=== PATIENT | female | born 1965 | race Caucasian/White ===

== ENCOUNTER 2016-10-19 20:30 | Emergency (ER) | payer BC ==
[~2016-10-19] VITALS: Ht 167.6 cm; Wt 78.0 kg
[2016-10-19] MEDS ORDERED: PROMETHAZINE 25 MG in IV NORMAL SALINE 50ML 50 ML IV PRN (21:00)
[2016-10-19] MEDS ORDERED: SUMATRIPTAN 6 MG/0.5 ML VIAL. SQ ONE (21:30)
[2016-10-19] MEDS ORDERED: IV NORMAL SALINE 1,000ML 1,000 ML IV SCH (21:30)
[2016-10-19] MEDS ORDERED: HALOPERIDOL LACT 5 MG/ML VIAL. IVP ONE (21:30)
[2016-10-19] MEDS ORDERED: KETOROLAC 30 MG/ML VIAL. IV ONE (21:30)
[2016-10-19] MEDS ORDERED: IV NORMAL SALINE 50ML 50 ML ONE (21:35)
[2016-10-19] MEDS ORDERED: PROMETHAZINE 25 MG/ML VIAL IV ONE (21:35)
[2016-10-19] MEDS ORDERED: BUTA1CAP29 PO (22:47)
[2016-10-19] MEDS ORDERED: ONDA4TAB10 PO (22:49)
--- NOTE | 2016-10-19 22:49 | PHYS DOC ---
General Chief Complaint: HEADACHE Stated Complaint: MIGRAINE Time Seen by MD: 20:34 Source: patient Exam Limitations: no limitations Problems: History of Present Illness Initial Comments Pt is 50/F to ED c/o headache. Pt states since Thursday (4 days) she's had global headache 9/10 throbbing with nausea, photophobia. No vision changes/aura/focal neurodeficit, no unexplained wt loss/head trauma/ataxia. Not described as "worst of life" but is consistent with prior chronic headache symptoms. CT evaluation past two years with negative findings, currently waiting for health insurance to schedule appointment with Dr Jauregui. Pt taking OTC meds past 4 days, nonbloody emesis x 2 tonight due to pain, tired of waiting it out so decided to come to ED. Timing/Duration: constant (4 days) Severity: severe Modifying Factors: worse with movement, improves with rest Associated Symptoms: headaches, malaise, nausea/vomiting, other Allergies: Coded Allergies: Penicillins (Verified Allergy, Intermediate, 10/19/16) Past Medical History Medical History: other (gastroparesis, chronic headaches/migraines) Surgical History: appendectomy, cholecystectomy (hysterectomy) Social History Smoker: non-smoker Alcohol: none Drugs: none Review of Systems Constitutional: denies chills, denies diaphoresis, denies fever EENTM: see HPI Respiratory: denies cough, denies shortness of breath Cardiovascular: denies chest pain, denies palpitations, denies syncope Gastrointestinal: denies abdominal pain, denies diarrhea, nausea vomiting ( vomit x 2 tonight) Genitourinary: denies dysuria, denies frequency, denies hematuria Musculoskeletal: denies back pain, denies joint swelling, denies neck pain Psychiatric/Neurological: see HPI Physical Exam General Appearance: mild distress, obese Eyes: bilateral eye EOMI, bilateral eye PERRL, bilateral eye normal inspection Ear, Nose, Throat: hearing grossly normal, normal ENT inspection, normal pharynx Neck: non-tender, supple Respiratory: normal breath sounds, no respiratory distress Cardiovascular: normal peripheral pulses, regular rate, rhythm Gastrointestinal: normal bowel sounds, non tender, soft, no organomegaly Back: no CVA tenderness, no vertebral tenderness Extremities: non-tender, normal inspection 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 Pt expressed agreement/understanding with treatment plan. Departure Time of Disposition: 22:47 Disposition: 01 HOME, SELF-CARE Diagnosis: Migraine Headache Condition: IMPROVED Patient Instructions: Migraine Headache, [id number] Additional Instructions: Rest, no strenuous activity. Aggressive hydration with gatorade, water. OTC ibuprofen for baseline discomfort. Rx: fioricet #10, zofran odt Take meds with food. Follow up with Dr Jauregui next available appointment for recheck. Return to ED with new or changing symptoms. ISH RENEE DO Oct 19, 2016 22:49
[2016-10-19 22:54] VITALS: BP 141/71
[2016-10-19] MEDS ORDERED: ONDANSETRON 4MG ODT 4TABLET STARTPACK. PO ONE (23:30)
== END 2016-10-19 23:00 | disposition home or self-care (01) ==
LOC: ER 20:30
DX: G43.909 Migraine, unspecified, not intractable, without status migrainosus (principal); R11.2 Nausea with vomiting, unspecified; Z88.0 Allergy status to penicillin
CPT/HCPCS: 96365; 96372; 96375; 99284; J1630; J1885; J2550; J3030; Q0162; J7030

== ENCOUNTER 2017-10-24 15:11 | Emergency (ER) | payer BC, OTHER ==
[~2017-10-24] VITALS: Ht 167.6 cm; Wt 78.0 kg
[2017-10-24 15:11] VITALS: BP 140/97
[~2017-10-24 15:11] MED LIST: BUTA1CAP29 PO; ONDA4TAB10 PO
[2017-10-24] MEDS ORDERED: FLUORESCEIN 1MG EYE STRIP. ONE (15:29)
[2017-10-24] MEDS ORDERED: TETRACAINE 0.5% OPHTH SOLUTION 4ML BOTTLE. OS ONE (15:45)
--- NOTE | 2017-10-24 17:40 | ED.ADGEN ---
Past History Past Medical History: Migraines Past Surgical History: Appendectomy, Cholecystectomy, Hysterectomy Alcohol Use: None Drug Use: None Adult General Chief Complaint Chief Complaint foreign body sensation left eye HPI HPI Patient is a 52-year-old female presents with foreign body sensation to left eye. Patient states she also has known object flew into her eye from the ceiling fan. Patient reports dull foreign body sensation left lateral lower eyelid region. Denies change in vision, headache, nausea or headache. It is rated as mild [] Review of Systems Review of Systems Constitutional: Denies fever or chills [] Eyes: Denies change in visual acuity, redness, or eye pain [] HENT: Denies nasal congestion or sore throat [] Respiratory: Denies cough or shortness of breath [] Cardiovascular: No additional information not addressed in HPI [] GI: Denies abdominal pain, nausea, vomiting, bloody stools or diarrhea [] : Denies dysuria or hematuria [] Musculoskeletal: Denies back pain or joint pain [] Integument: Denies rash or skin lesions [] Neurologic: Denies headache, focal weakness or sensory changes [] Endocrine: Denies polyuria or polydipsia [] All other systems were reviewed and found to be within normal limits, except as documented in this note. Current Medications Current Medications Current Medications Medications (Trade) Dose Ordered Sig/[facility] Start Time Stop Time Status Last Admin Dose Admin Fluorescein Sodium (Ful-Roz 1mg) 1 strip STK-MED ONCE 10/24/17 15:29 10/24/17 15:30 DC Tetracaine HCl (Tetracaine) 2 drop 1X ONCE 10/24/17 15:45 10/24/17 15:46 DC 10/24/17 15:31 2 DROP Allergies Allergies Allergies Coded Allergies Type Severity Reaction Last Updated Verified Penicillins Allergy Intermediate 10/19/16 Yes Physical Exam Physical Exam Constitutional: Well developed, well nourished, no acute distress, non-toxic appearance. [] HENT: Normocephalic, atraumatic, bilateral external ears normal, oropharynx moist, no oral exudates, nose normal. [] Eyes: PERRLA, EOMI, conjunctiva normal, no discharge. [] Neck: Normal range of motion, no tenderness, supple, no stridor. [] Cardiovascular:Heart rate regular rhythm, no murmur [] Lungs & Thorax: Bilateral breath sounds clear to auscultation [] Abdomen: Bowel sounds normal, soft, no tenderness, no masses, no pulsatile masses. [] Skin: Warm, dry, no erythema, no rash. [] Back: No tenderness, no CVA tenderness. [] Extremities: No tenderness, no cyanosis, no clubbing, ROM intact, no edema. [] Neurologic: Alert and oriented X 3, normal motor function, normal sensory function, no focal deficits noted. [] Psychologic: Affect normal, judgement normal, mood normal. [] Current Patient Data Vital Signs Vital Signs Date Time Temp Pulse Resp B/P (MAP) Pulse Ox O2 Delivery O2 Flow Rate FiO2 10/24/17 15:11 98.0 94 20 98 Room Air EKG EKG [] Radiology/Procedures Radiology/Procedures [] Course & Med Decision Making Course & Med Decision Making Pertinent Labs and Imaging studies reviewed. (See chart for details) [] Final Impression Final Impression [] Problems: Dragon Disclaimer Dragon Disclaimer This electronic medical record was generated, in whole or in part, using a voice recognition dictation system. ELIZA GONCALVES DO October 24, 2017 17:40
== END 2017-10-24 16:30 | disposition home or self-care (01) ==
LOC: ER 15:11
DX: H57.8 Other specified disorders of eye and adnexa (principal); G43.909 Migraine, unspecified, not intractable, without status migrainosus; Z88.0 Allergy status to penicillin
CPT/HCPCS: 99283

== ENCOUNTER 2018-07-04 15:04 | Emergency (ER) | payer OTHER ==
[~2018-07-04] VITALS: Ht 167.6 cm; Wt 78.0 kg
--- NOTE | 2018-07-04 15:45 | PHYS DOC ---
Past History Past Medical History: Migraines Past Surgical History: Appendectomy, Cholecystectomy, Hysterectomy Smoking: Non-smoker Alcohol Use: None Drug Use: None Adult General Chief Complaint Chief Complaint: CHEST PAIN HPI HPI 52-year-old female resents with one-day history of sinus pressure with headache and associated chest discomfort. Patient does report associated nausea vomiting and diarrhea. Denies fever or chills. Denies trauma. Denies neck pain. Review of Systems Review of Systems Constitutional: Denies fever or chills [] Eyes: Denies change in visual acuity, redness, or eye pain [] HENT: Denies nasal congestion or sore throat [] Respiratory: Denies cough or shortness of breath [] Cardiovascular: Reports chest pain; denies palpitations GI: Denies abdominal pain; reports nausea and vomiting : Denies dysuria or hematuria [] Musculoskeletal: Denies back pain or joint pain [] Integument: Denies rash or skin lesions [] Neurologic: Denies headache, focal weakness or sensory changes [] Complete systems were reviewed and found to be within normal limits, except as documented in this note. Current Medications Current Medications Current Medications Medications (Trade) Dose Ordered Sig/Álvaro Start Time Stop Time Status Last Admin Dose Admin Dexamethasone Sodium Phosphate (Decadron) 10 mg 1X ONCE 07/04/18 16:00 07/04/18 16:01 Diphenhydramine HCl (Benadryl) 25 mg 1X ONCE 07/04/18 16:00 07/04/18 16:01 Famotidine (Pepcid Vial) 20 mg 1X ONCE 07/04/18 16:00 07/04/18 16:01 Ketorolac Tromethamine (Toradol 15mg Vial) 15 mg 1X ONCE 07/04/18 16:00 07/04/18 16:01 Metoclopramide HCl (Reglan Vial) 10 mg 1X ONCE 07/04/18 16:00 07/04/18 16:01 Sodium Chloride 1,000 ml @ 1,000 mls/hr 1X ONCE 07/04/18 15:30 07/04/18 16:29 Allergies Allergies Allergies Coded Allergies Type Severity Reaction Last Updated Verified Penicillins Allergy Intermediate 10/19/16 Yes Physical Exam Physical Exam Constitutional: Well developed, well nourished, no acute distress, non-toxic appearance. [] HENT: Normocephalic, atraumatic, oropharynx moist, no oral exudates, nose normal , bilateral maxillary sinus tenderness noted on palpations Eyes: PERRL, EOMI, conjunctiva normal, no discharge. [] Neck: Normal range of motion, no tenderness, supple, no meningeal signs Cardiovascular: Heart rate regular rhythm, no murmur [] Lungs & Thorax: Bilateral breath sounds clear to auscultation [] Abdomen: Soft, no tenderness Skin: Warm, dry, no erythema, no rash. [] Back: No tenderness, no CVA tenderness. [] Extremities: No tenderness, ROM intact, no edema. [] Neurologic: Alert and oriented X 3, normal motor function, normal sensory function, no focal deficits noted. [] Psychologic: Affect normal, judgement normal, mood normal. [] EKG EKG @1510 NSR at 75bpm, NO ST elevation, Q wave noted in III Radiology/Procedures Radiology/Procedures PROCEDURE: CT HEAD AND MAXILLOFACIAL [facility] Compliance Statement: One or more of the following individualized dose reduction techniques were utilized for this examination: 1. Automated exposure control 2. Adjustment of the mA and/or kV according to patient size 3. Use of iterative reconstruction technique CT HEAD AND MAXILLOFACIAL WITHOUT CONTRAST History: Facial pain, sinus pressure on left affecting eye, headache today Comparison: None. Procedure: Axial images are obtained of the head from the skull base through the vertex without IV contrast. Helical CT imaging of the facial bones is performed without IV contrast. Findings: The ventricles and sulci are normal for the patient's age. No mass-effect, midline shift, hemorrhage or obvious acute infarction is identified. Basilar cisterns are patent. Bone windows demonstrate no significant calvarial abnormality. No acute facial bone fracture. Small mucous retention cyst or polyp inferior right maxillary sinus. Minimal mucosal thickening. Other paranasal sinuses are clear. No air-fluid level. Mastoid air cells are well aerated. The ostiomeatal complexes are very narrow but appear to be patent. Bony nasal septum is mostly midline. The globes and orbits are intact. There is a left maxilla molar dental cavity. Cannot evaluate surrounding soft tissues due to beam hardening artifact from nearby dental amalgam. IMPRESSION: 1. No acute intracranial abnormality. 2. Paranasal sinuses are essentially clear. 3. There is left maxilla molar tooth dental cavity. Electronically signed by: Kirt Lindsay MD (07/04/2018 4:09 PM) [facility] Course & Med Decision Making Course & Med Decision Making Pertinent Labs and Imaging studies reviewed. (See chart for details) Patient presents with report of sinus pressure and headache with associated chest discomfort and nausea vomiting diarrhea. Denies known sick contacts. Denies neck pain. Patient is afebrile. Patient otherwise neurologically intact. Patient does have some maxillary sinus pressure on palpation. CT head/ maxillofacial without acute process. Symptomatically treatment provided with interval improvement of symptoms. Patient stable for discharge with outpatient follow-up with PCP. Discussed findings and plan with patient, who acknowledges understanding and agreement. Dragon Disclaimer Dragon Disclaimer This electronic medical record was generated, in whole or in part, using a voice recognition dictation system. Departure Departure: Impression: Primary Impression: Headache Additional Impression: Atypical chest pain Disposition: HOME, SELF-CARE Condition: IMPROVED Referrals: MO FORD MD (PCP) Patient Instructions: Migraine Headache, [id number] Scripts Butalb/Acetaminophen/Caffeine ([id number] 50-325-40) 1 Each Tablet 1 EACH PO Q6HRS PRN for HEADACHE, #14 TAB Prov: JORJE GOETZ DO 07/04/18 Problem Qualifiers Primary Impression: Headache Headache type: unspecified Headache chronicity pattern: acute headache Intractability: not intractable Qualified Codes: R51 - Headache JORJE GOETZ DO Jul 04, 2018 15:45
--- NOTE | 2018-07-04 16:11 | EKG ---
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
--- NOTE | 2018-07-04 16:13 | RAD ---
[facility] Compliance Statement: One or more of the following individualized dose reduction techniques were utilized for this examination: 1. Automated exposure control 2. Adjustment of the mA and/or kV according to patient size 3. Use of iterative reconstruction technique CT HEAD AND MAXILLOFACIAL WITHOUT CONTRAST History: Facial pain, sinus pressure on left affecting eye, headache today Comparison: None. Procedure: Axial images are obtained of the head from the skull base through the vertex without IV contrast. Helical CT imaging of the facial bones is performed without IV contrast. Findings: The ventricles and sulci are normal for the patient's age. No mass-effect, midline shift, hemorrhage or obvious acute infarction is identified. Basilar cisterns are patent. Bone windows demonstrate no significant calvarial abnormality. No acute facial bone fracture. Small mucous retention cyst or polyp inferior right maxillary sinus. Minimal mucosal thickening. Other paranasal sinuses are clear. No air-fluid level. Mastoid air cells are well aerated. The ostiomeatal complexes are very narrow but appear to be patent. Bony nasal septum is mostly midline. The globes and orbits are intact. There is a left maxilla molar dental cavity. Cannot evaluate surrounding soft tissues due to beam hardening artifact from nearby dental amalgam. IMPRESSION: 1. No acute intracranial abnormality. 2. Paranasal sinuses are essentially clear. 3. There is left maxilla molar tooth dental cavity. Electronically signed by: Kirt Lindsay MD (07/04/2018 4:09 PM) [facility]
[2018-07-04] MEDS: IV NORMAL SALINE 1,000ML 1,000 ML IV ONE (16:49)
[2018-07-04] MEDS: diphenhydrAMINE 50 MG/ML VIAL IVP ONE (16:49)
[2018-07-04] MEDS: DEXAMETHASONE SOD PHOS 10 MG/ML VIAL IV ONE (16:50)
[2018-07-04] MEDS: FAMOTIDINE 20 MG/2 ML VIAL IVP ONE (16:50)
[2018-07-04] MEDS: KETOROLAC 15 MG/ML VIAL. IV ONE (16:50)
[2018-07-04] MEDS: METOCLOPRAMIDE HCL 10 MG/2 ML VIAL. IV ONE (16:50)
[2018-07-04 17:03] LABS: BASO # 0.1 x10^3/uL (0.0-0.2); BASO % 1 % (0-3); EOS % 0 % (0-3); HEMATOCRIT 43.3 % (36.0-47.0); LYMPH # 0.9 x10^3/uL (1.0-4.8); LYMPH % 10 % (24-48); MEAN CORPUSCULAR HEMOGLOBIN 30 pg (25-35); MEAN CORPUSCULAR HGB CONC 35 g/dL (31-37); MEAN CORPUSCULAR VOLUME 87 fL (79-100); MONO # 0.3 x10^3/uL (0.0-1.1); MONO % 3 % (0-9); NEUT % 86 % (31-73); PLATELET COUNT 298 x10^3/uL (140-400); RED BLOOD COUNT 4.99 x10^6/uL (3.50-5.40); RED CELL DISTRIBUTION WIDTH 13.3 % (11.5-14.5); WHITE BLOOD COUNT 9.3 x10^3/uL (4.0-11.0)
[2018-07-04 17:25] VITALS: BP 153/79
[2018-07-04 17:49] LABS: ALBUMIN 3.7 g/dL (3.4-5.0); ALBUMIN/GLOBULIN RATIO 0.9 (1.0-1.7); CALCIUM 8.7 mg/dL (8.5-10.1); CREATININE 0.7 mg/dL (0.6-1.0); GFR 88.2; MAGNESIUM 1.9 mg/dL (1.8-2.4); POTASSIUM 4.1 mmol/L (3.5-5.1); TOTAL BILIRUBIN 0.3 mg/dL (0.2-1.0); TOTAL PROTEIN 7.6 g/dL (6.4-8.2)
[2018-07-04] MEDS ORDERED: BUTA1TAB23 PO (18:05)
== END 2018-07-04 17:52 | disposition home or self-care (01) ==
LOC: ER 15:04
DX: R07.89 Other chest pain (principal); R51 Headache; G43.909 Migraine, unspecified, not intractable, without status migrainosus; Z88.0 Allergy status to penicillin
CPT/HCPCS: 36415; 70450; 70486; 80053; 82553; 83735; 84484; 85025; 93005; 96374; 96375; 99284; J1100; J1200; J1885; J2765; J3490; J7030

== ENCOUNTER 2018-08-13 19:31 | Emergency (ER) | payer SELFPAY ==
[~2018-08-13] VITALS: Ht 167.6 cm; Wt 81.6 kg
[~2018-08-13 19:31] MED LIST changes: +BUTA1TAB23 PO
[2018-08-13 20:04] VITALS: BP 152/67
--- NOTE | 2018-08-13 20:30 | ED.ADGEN ---
Past History Past Medical History: Kidney Stones, Migraines, UTI Past Surgical History: Appendectomy, Cholecystectomy, Hysterectomy Smoking: Non-smoker Alcohol Use: None Drug Use: None Adult General Chief Complaint Chief Complaint ".. This is like my 4th renal stone.. they say I will keep getting them... not much blood in my urine.. I just need something for pain and nausea.. I don't want any CT or labs.. I had these so .. I know what is going on..." [facility] HPI Patient is a 52 year old FEMALE who presents with above hx and complaints renal colic on the left. Patient has history of previous renal stones. She reports Stone has seen the passed down on the left just above bladder. Patient denies any dysuria. Patient states that hematuria is cleared. Patient denies any history immunosuppression. Patient denies any history of trauma. Patient denies any travel or specific ill contacts. Patient normally healthy with the exception of the kidney stones. Patient insistent that she does not want any labs or CT at this time and will follow-up with her urologist and primary care. Patient apparently works at [employer]. Patient denies any fever or chills. Patient normally follows with Dr. Jauregui Review of Systems Review of Systems Constitutional: Denies fever or chills [] Eyes: Denies change in visual acuity, redness, or eye pain [] HENT: Denies nasal congestion or sore throat [] Respiratory: Denies cough or shortness of breath [] Cardiovascular: No additional information not addressed in HPI [] GI: Plaints of left flank abdominal pain, nausea, vomiting,. Complaints of renal colic. Denies bloody stools or diarrhea [] : Denies dysuria or hematuria [] Musculoskeletal: Plaints left flank back pain. Integument: Denies rash or skin lesions [] Neurologic: Denies headache, focal weakness or sensory changes [] Endocrine: Denies polyuria or polydipsia [] All other systems were reviewed and found to be within normal limits, except as documented in this note. Family History Family History Noncontributory Current Medications Current Medications Current Medications Medications (Trade) Dose Ordered Sig/Álvaro Start Time Stop Time Status Last Admin Dose Admin Ketorolac Tromethamine (Toradol Im) 60 mg 1X ONCE 08/13/18 21:45 08/13/18 21:46 DC 08/13/18 21:35 60 MG Morphine Sulfate (Morphine 10mg Syringe) 10 mg 1X ONCE 08/13/18 21:45 08/13/18 21:46 DC 08/13/18 21:42 10 MG Ondansetron HCl (Zofran Odt) 8 mg 1X ONCE 08/13/18 21:45 08/13/18 21:46 DC 08/13/18 21:41 8 MG Allergies Allergies Allergies Coded Allergies Type Severity Reaction Last Updated Verified Penicillins Allergy Intermediate 10/19/16 Yes Physical Exam Physical Exam Constitutional: in moderately acute distress, non-toxic appearance. [] HENT: Normocephalic, atraumatic, bilateral external ears normal, oropharynx moist, no oral exudates, nose normal. [] Eyes: PERRLA, EOMI, conjunctiva normal, no discharge. [] Neck: Normal range of motion, no tenderness, supple, no stridor. [] Cardiovascular:Heart rate regular rhythm, no murmur [] Lungs & Thorax: Bilateral breath sounds equal apex on auscultation [] Abdomen: Bowel sounds decreased, soft, no tenderness, no masses, no pulsatile masses. Flank pain. Old surgery scar. Obese. No true rebound. Skin: Warm, dry, no erythema, no rash. [] Back: No tenderness, no CVA tenderness. [] Extremities: No tenderness, no cyanosis, no clubbing, ROM intact, no edema. [] No psoas Neurologic: Alert and oriented X 3, normal motor function, normal sensory function, no focal deficits noted. [] Psychologic: Affect anxious, judgement normal, mood normal. [] Current Patient Data Vital Signs Vital Signs Date Time Temp Pulse Resp B/P (MAP) Pulse Ox O2 Delivery O2 Flow Rate FiO2 08/13/18 21:42 18 08/13/18 20:04 98.1 71 97 Room Air Lab Results Laboratory Tests Test 08/13/18 19:40 Urine Collection Type Unknown Urine Color Yellow Urine Clarity Clear Urine pH 7.0 Urine Specific [place] 1.020 Urine Protein Neg (NEG-TRACE) Urine Glucose (UA) Neg mg/dL (NEG) Urine Ketones (Stick) Neg mg/dL (NEG) Urine Blood Neg (NEG) Urine Nitrite Neg (NEG) Urine Bilirubin Neg (NEG) Urine Urobilinogen Dipstick 0.2 mg/dL (0.2 mg/dL) Urine Leukocyte Esterase Neg (NEG) Urine RBC 0 /HPF (0-2) Urine WBC Occ /HPF (0-4) Urine Squamous Epithelial Cells Occ /LPF Urine Bacteria 0 /HPF (0-FEW) EKG EKG [] Radiology/Procedures Radiology/Procedures Patient declined any CT evaluation[] Course & Med Decision Making Course & Med Decision Making Pertinent Labs and Imaging studies reviewed. (See chart for details). Patient push fluids. Stay on a clear fluid diet. May take Vicoprofen up to 4 times a day for pain. May take Zofran 8 mg up 4 times a day for nausea and vomiting. Must follow-up primary care. Follow-up with urology. Return if any concerns. [] Final Impression Final Impression 1. Dysuria 2. Renal colic - Lt. [] 3. Hx Kidney stones Dragon Disclaimer Dragon Disclaimer This electronic medical record was generated, in whole or in part, using a voice recognition dictation system. Dragon Disclaimer This chart was dictated in whole or in part using Voice Recognition software in a busy, high-work load, and often noisy Emergency Department environment. It may contain unintended and wholly unrecognized errors or omissions. Discharge Summary Visit Information Final Diagnosis Problems Medical Problems: (1) Kidney calculi Status: Acute (2) Renal colic Status: Acute Brief Hospital Course Allergies Allergies Coded Allergies Type Severity Reaction Last Updated Verified Penicillins Allergy Intermediate 10/19/16 Yes Vital Signs Vital Signs Date Time Temp Pulse Resp B/P (MAP) Pulse Ox O2 Delivery O2 Flow Rate FiO2 08/13/18 21:42 18 08/13/18 20:04 98.1 71 97 Room Air Lab Results Laboratory Tests Test 08/13/18 19:40 Urine Collection Type Unknown Urine Color Yellow Urine Clarity Clear Urine pH 7.0 Urine Specific [place] 1.020 Urine Protein Neg (NEG-TRACE) Urine Glucose (UA) Neg mg/dL (NEG) Urine Ketones (Stick) Neg mg/dL (NEG) Urine Blood Neg (NEG) Urine Nitrite Neg (NEG) Urine Bilirubin Neg (NEG) Urine Urobilinogen Dipstick 0.2 mg/dL (0.2 mg/dL) Urine Leukocyte Esterase Neg (NEG) Urine RBC 0 /HPF (0-2) Urine WBC Occ /HPF (0-4) Urine Squamous Epithelial Cells Occ /LPF Urine Bacteria 0 /HPF (0-FEW) Brief Hospital Course Ms. Lovett is a 52 old female who presented with complaints of Lt renal colic. Declined labs or CT. Request pain and nausea med. Will follow with her urology and Dr. Jauregui. Discharge Information Condition at Discharge: Improved, Stable Disposition/Orders: D/C to Home Dischare Medications Current Medications Morphine Sulfate (Morphine 10mg Syringe) 10 mg 1X ONCE SQ Last administered on 08/13/18at 21:42; Admin Dose 10 MG; Start 08/13/18 at 21:45; Stop 08/13/18 at 21:46; Status DC Ketorolac Tromethamine (Toradol Im) 60 mg 1X ONCE IM Last administered on 08/13at 21:35; Admin Dose 60 MG; Start 08/13/18 at 21:45; Stop 08/13/18 at 21:46; Status DC Ondansetron HCl (Zofran Odt) 8 mg 1X ONCE PO Last administered on 08/13/18at 21 :41; Admin Dose 8 MG; Start 08/13/18 at 21:45; Stop 08/13/18 at 21:46; Status DC Active Scripts Active Zofran (Ondansetron Hcl) 8 Mg Tablet 8 Mg PO QIDPRN PRN Hydrocodone-Ibuprofen 7.5-200 (Hydrocodone/Ibuprofen) 1 Each Tablet 1 Tab PO PRN Q6HRS PRN Nrjwmz-Axmctsrk-Juge 50-325-40 (Butalb/Acetaminophen/Caffeine) 1 Each Tablet 1 Each PO Q6HRS PRN Zofran Odt (Ondansetron) 4 Mg Tab.rapdis 4 Mg PO Q6HRS Fioricet 50-300-40 Mg Capsule (Butalb/Acetaminophen/Caffeine) 1 Each Capsule 1 Each PO Q4-6HRS PRN AISLINN CONNOLLY MD Aug 13, 2018 20:30
[2018-08-13 21:02] LABS: BILIRUBIN,URINE NEG (NEG); CLARITY,URINE CLEAR; COLOR,URINE YELLOW; GLUCOSE,URINE NEG (NEG)
[2018-08-13 21:03] LABS: BACTERIA,URINE 0 /HPF (0-FEW); NITRITE,URINE NEG (NEG); RBC,URINE 0 /HPF (0-2); SQUAMOUS EPITHELIAL CELL,UR OCC /LPF; UROBILINOGEN,URINE 0.2 mg/dL (0.2 mg/dL); WBC,URINE OCC /HPF (0-4)
[2018-08-13] MEDS ORDERED: ONDA8TAB9 PO (21:21)
[2018-08-13] MEDS ORDERED: HYDR-1179 PO (21:21)
[2018-08-13] MEDS ORDERED: ONDANSETRON ODT 4 MG TAB.RAPDIS PO ONE (21:45)
[2018-08-13] MEDS ORDERED: KETOROLAC 60 MG/2 ML VIAL. IM ONE (21:45)
[2018-08-13] MEDS ORDERED: MORPHINE SULFATE 10 MG/ML SYRINGE. SQ ONE (21:45)
== END 2018-08-13 21:49 | disposition home or self-care (01) ==
LOC: ER 19:31
DX: N23 Unspecified renal colic (principal); R30.0 Dysuria; G43.909 Migraine, unspecified, not intractable, without status migrainosus; Z87.442 Personal history of urinary calculi; Z87.440 Personal history of urinary (tract) infections; Z90.49 Acquired absence of other specified parts of digestive tract; Z90.89 Acquired absence of other organs; Z90.710 Acquired absence of both cervix and uterus; Z88.0 Allergy status to penicillin
CPT/HCPCS: 81001; 96372; 99283; J1885; J2270; Q0162

== ENCOUNTER 2018-10-12 16:31 | Emergency (ER) | payer SELFPAY ==
[~2018-10-12] VITALS: Ht 167.6 cm; Wt 82.6 kg
[~2018-10-12 16:31] MED LIST changes: +HYDR-1179 PO; +ONDA8TAB9 PO
--- NOTE | 2018-10-12 16:48 | PHYS DOC ---
Past History Past Medical History: Kidney Stones, Migraines, UTI Past Surgical History: Appendectomy, Cholecystectomy, Hysterectomy Smoking: Non-smoker Alcohol Use: None Drug Use: None Adult General Chief Complaint Chief Complaint: COUGH HPI HPI 52-year-old female presents with cough, congestion for last 3 days. The patient is also developed laryngitis today. She was sent home from work yesterday and stayed home today. She had a strep test done yesterday that was negative. She came in today because she is not feeling any better. She denies fever or chills at home. Her cough is minimally productive. She is able to sleep at night. Review of Systems Review of Systems Constitutional: Denies fever or chills [] Eyes: Denies change in visual acuity, redness, or eye pain [] HENT: Denies nasal congestion or sore throat [] Respiratory: Cough without shortness of breath [] Cardiovascular: No additional information not addressed in HPI [] GI: Denies abdominal pain, nausea, vomiting, bloody stools or diarrhea [] : Denies dysuria or hematuria [] Musculoskeletal: Denies back pain or joint pain [] Integument: Denies rash or skin lesions [] Neurologic: Denies headache, focal weakness or sensory changes [] Endocrine: Denies polyuria or polydipsia [] All other systems were reviewed and found to be within normal limits, except as documented in this note. Allergies Allergies Allergies Coded Allergies Type Severity Reaction Last Updated Verified Penicillins Allergy Intermediate 10/19/16 Yes Physical Exam Physical Exam Constitutional: Well developed, well nourished, no acute distress, non-toxic appearance. Decreased voice strength[] HENT: Normocephalic, atraumatic, bilateral external ears normal, oropharynx mildly erythematous without exudates, nose normal. [] Eyes: PERRLA, EOMI, conjunctiva normal, no discharge. [] Neck: Normal range of motion, no tenderness, supple, no stridor. [] Cardiovascular:Heart rate regular rhythm, no murmur [] Lungs & Thorax: Bilateral breath sounds clear to auscultation [] Abdomen: Bowel sounds normal, soft, no tenderness, no masses, no pulsatile masses. [] Skin: Warm, dry, no erythema, no rash. [] Back: No tenderness, no CVA tenderness. [] Extremities: No tenderness, no cyanosis, no clubbing, ROM intact, no edema. [] Neurologic: Alert and oriented X 3, normal motor function, normal sensory function, no focal deficits noted. [] Psychologic: Affect normal, judgement normal, mood normal. [] EKG EKG [] Radiology/Procedures Radiology/Procedures [] Impressions: CHEST PA LATERAL History: COUGH, LARYNGITIS Comparison: None. Findings: The cardiomediastinal silhouette is normal. Pulmonary vasculature is normal. The lungs are clear. No pleural effusion or pneumothorax is seen. There is no acute bone abnormality. IMPRESSION: No acute cardiopulmonary process. Electronically signed by: Kirt Greenfield MD (10/12/2018 5:02 PM) [id number] DICTATED AND SIGNED BY: KIRT GREENFIELD MD DATE: 10/12/181701 CC: ELIZA GUTHRIE DO; MO FORD MD ~ Course & Med Decision Making Course & Med Decision Making Pertinent Labs and Imaging studies reviewed. (See chart for details) Patient's chest x-ray is unremarkable. Her physical exam and history are consistent with viral URI with cough. I have advised supportive care. She is stable for discharge at this time. [] Dragon Disclaimer Dragon Disclaimer This electronic medical record was generated, in whole or in part, using a voice recognition dictation system. Departure Departure: Impression: Primary Impression: Viral URI with cough Disposition: 01 HOME, SELF-CARE Condition: STABLE Referrals: MO FORD MD (PCP) Patient Instructions: Upper Respiratory Infection, Adult, [id number] ELIZA GUTHRIE DO Oct 12, 2018 16:48
--- NOTE | 2018-10-12 17:05 | RAD ---
CHEST PA LATERAL History: COUGH, LARYNGITIS Comparison: None. Findings: The cardiomediastinal silhouette is normal. Pulmonary vasculature is normal. The lungs are clear. No pleural effusion or pneumothorax is seen. There is no acute bone abnormality. IMPRESSION: No acute cardiopulmonary process. Electronically signed by: Kirt Lindsay MD (10/12/2018 5:02 PM) [id number]
[2018-10-12 17:28] VITALS: BP 119/76
== END 2018-10-12 17:29 | disposition home or self-care (01) ==
LOC: ER 16:31
DX: J06.9 Acute upper respiratory infection, unspecified (principal); B97.89 Other viral agents as the cause of diseases classified elsewhere; G43.909 Migraine, unspecified, not intractable, without status migrainosus; Z87.442 Personal history of urinary calculi; Z87.440 Personal history of urinary (tract) infections; Z88.0 Allergy status to penicillin
CPT/HCPCS: 71046; 99284

== ENCOUNTER 2018-11-08 22:30 | Emergency (ER) | payer SELFPAY ==
[~2018-11-08] VITALS: Ht 167.6 cm; Wt 82.1 kg
[2018-11-08 22:30] VITALS: BP 152/68
--- NOTE | 2018-11-08 22:51 | PHYS DOC ---
Past History Past Medical History: Kidney Stones, Migraines, UTI Past Surgical History: Appendectomy, Cholecystectomy, Hysterectomy Smoking: Non-smoker Alcohol Use: None Drug Use: None Adult General Chief Complaint Chief Complaint: MULTIPLE COMPLAINTS HPI HPI Patient is a 53-year-old female who presents with complaint of headache and nausea as well as elevated blood pressure and diarrhea. Patient states that she had headache earlier this evening and took a Fioricet. She states the headache is pretty much gone at this point but states that she still has nausea despite taking Zofran and Phenergan. Patient also indicates that she noted that her blood pressure was fairly elevated at home with systolic of 187. She also states that she started having diarrhea that started earlier this evening.[] Review of Systems Review of Systems Constitutional: Denies fever or chills [] Respiratory: Denies cough or shortness of breath [] Cardiovascular: No additional information not addressed in HPI [] GI: Complains of nausea and diarrhea [] Neurologic: Complains of headache without focal weakness or sensory changes [] Current Medications Current Medications Current Medications Medications (Trade) Dose Ordered Sig/Álvaro Start Time Stop Time Status Last Admin Dose Admin Diphenhydramine HCl (Benadryl) 25 mg 1X ONCE 11/08/18 22:45 11/08/18 22:46 UNV Diphenoxylate HCl/ Atropine (Lomotil) 2 tab 1X ONCE 11/08/18 22:45 11/08/18 22:46 UNV Metoclopramide HCl (Reglan Vial) 10 mg 1X ONCE 11/08/18 22:45 11/08/18 22:46 UNV Allergies Allergies Allergies Coded Allergies Type Severity Reaction Last Updated Verified Penicillins Allergy Intermediate 10/19/16 Yes Physical Exam Physical Exam Constitutional: Well developed, well nourished, no acute distress, non-toxic appearance. [] Cardiovascular:Heart rate regular rhythm, no murmur [] Lungs & Thorax: Bilateral breath sounds clear to auscultation [] Abdomen: Bowel sounds normal, soft. [] Skin: Warm, dry, no erythema, no rash. [] Neurologic: Alert and oriented X 3, no focal deficits noted. [] Current Patient Data Vital Signs Vital Signs Date Time Temp Pulse Resp B/P (MAP) Pulse Ox O2 Delivery O2 Flow Rate FiO2 11/08/18 22:30 98.1 87 18 98 Room Air EKG EKG [] Radiology/Procedures Radiology/Procedures [] Course & Med Decision Making Course & Med Decision Making Pertinent Labs and Imaging studies reviewed. (See chart for details) [] Dragon Disclaimer Dragon Disclaimer This electronic medical record was generated, in whole or in part, using a voice recognition dictation system. Departure Departure: Impression: Primary Impression: Migraine Additional Impressions: Diarrhea Elevated blood pressure reading Disposition: 01 HOME, SELF-CARE Condition: STABLE Referrals: MO FORD MD (PCP) Patient Instructions: Diarrhea, Managing Your High Blood Pressure, Migraine Headache, Syan-ue-Irbi Scripts Diphenoxylate Hcl/Atropine (LOMOTIL TABLET) 1 Each Tablet 1 TAB PO TID PRN for DIARRHEA, #15 TAB Prov: CORNELIUS DECKER Jr. DO 11/08/18 Butalbital/Aspirin/Caffeine (FIORINAL 50-325-40 MG CAPSULE) 1 Each Capsule 1 EACH PO Q6HRS PRN for HEADACHE, #20 CAP Prov: CORNELIUS DECKER Jr. DO 11/08/18 Problem Qualifiers Primary Impression: Migraine Migraine type: unspecified Status migrainosus presence: without status migrainosus Intractability: not intractable Qualified Codes: G43.909 - Migraine, unspecified, not intractable, without status migrainosus Additional Impressions: Diarrhea Diarrhea type: unspecified type Qualified Codes: R19.7 - Diarrhea, unspecified CORNELIUS DECKER Jr. DO November 08, 2018 22:51
[2018-11-08] MEDS ORDERED: METOCLOPRAMIDE HCL 10 MG/2 ML VIAL. IM ONE (23:00)
[2018-11-08] MEDS ORDERED: DIPHENOXYLATE/ATROPINE TABLET. PO ONE (23:00)
[2018-11-08] MEDS ORDERED: diphenhydrAMINE HCL 25 MG CAPSULE PO ONE (23:00)
[2018-11-08] MEDS ORDERED: DIPH1TAB PO (23:11)
[2018-11-08] MEDS ORDERED: BUTA1CAP31 PO (23:11)
== END 2018-11-08 23:15 | disposition home or self-care (01) ==
LOC: ER 22:30
DX: G43.909 Migraine, unspecified, not intractable, without status migrainosus (principal); R19.7 Diarrhea, unspecified; R03.0 Elevated blood-pressure reading, without diagnosis of hypertension; Z87.442 Personal history of urinary calculi; Z87.440 Personal history of urinary (tract) infections; Z88.0 Allergy status to penicillin
CPT/HCPCS: 96372; 99283; J2765; Q0163

== ENCOUNTER 2019-01-19 20:01 | Emergency (ER) | payer SELFPAY ==
[~2019-01-19] VITALS: Ht 167.6 cm; Wt 82.1 kg
[~2019-01-19 20:01] MED LIST changes: +BUTA1CAP31 PO; +DIPH1TAB PO
[2019-01-19] MEDS ORDERED: IV NORMAL SALINE 1,000ML 1,000 ML IV ONE (20:45)
[2019-01-19 20:50] LABS: BILIRUBIN,URINE NEG (NEG); CLARITY,URINE CLEAR; COLOR,URINE YELLOW; GLUCOSE,URINE NEG (NEG)
[2019-01-19 20:51] LABS: BACTERIA,URINE 0 /HPF (0-FEW); NITRITE,URINE NEG (NEG); SQUAMOUS EPITHELIAL CELL,UR FEW /LPF; UROBILINOGEN,URINE 0.2 mg/dL (0.2 mg/dL); WBC,URINE OCC /HPF (0-4)
[2019-01-19 20:58] LABS: BASO % 1 % (0-3); EOS # 0.1 x10^3/uL (0.0-0.7); EOS % 2 % (0-3); HEMATOCRIT 42.4 % (36.0-47.0); HEMOGLOBIN 14.4 g/dL (12.0-15.5); LYMPH % 26 % (24-48); MEAN CORPUSCULAR HEMOGLOBIN 31 pg (25-35); MEAN CORPUSCULAR HGB CONC 34 g/dL (31-37); MEAN CORPUSCULAR VOLUME 90 fL (79-100); MONO # 0.8 x10^3/uL (0.0-1.1); MONO % 10 % (0-9); NEUT % 62 % (31-73); PLATELET COUNT 306 x10^3/uL (140-400); RED BLOOD COUNT 4.71 x10^6/uL (3.50-5.40); RED CELL DISTRIBUTION WIDTH 13.3 % (11.5-14.5)
[2019-01-19] MEDS ORDERED: METOCLOPRAMIDE HCL 10 MG/2 ML VIAL. IV ONE (21:00)
[2019-01-19] MEDS ORDERED: KETOROLAC 15 MG/ML VIAL. IV ONE (21:00)
--- NOTE | 2019-01-19 21:07 | PHYS DOC ---
Past History Past Medical History: Kidney Stones, Migraines, UTI, Other Past Surgical History: Appendectomy, Cholecystectomy, Hysterectomy Smoking: Non-smoker Alcohol Use: None Drug Use: None Adult General Chief Complaint Chief Complaint: FLANK PAIN HPI HPI Ms. Lovett is a 53yo F w/ PMH significant for kidney stones presents with left-sided flank pain that began earlier this morning at 3 AM, waking the patient from sleep, and has been constant; 7/10 in severity. States pain is sharp and "feels like other kidney stones." Admits to being able to feel the stone move but feels as though it is "stuck." Has not tried Tylenol or ibuprofen but has been drinking "a lot of water." Denies fever/chills. Denies trauma. Review of Systems Review of Systems Constitutional: Denies fever or chills Eyes: Denies redness or eye pain HENT: Denies nasal congestion or sore throat Respiratory: Denies cough or shortness of breath Cardiovascular: Denies chest pain or palpitations GI: Reports left flank pain. Denies nausea, vomiting, diarrhea, constipation, or hematochezia. : Reports dysuria. Denies hematuria. Musculoskeletal: Denies back pain or joint pain; reports left flank pain Integument: Denies rash or skin lesions Neurologic: Denies headache, focal weakness or sensory changes Complete systems were reviewed and found to be within normal limits, except as documented in this note. Current Medications Current Medications Current Medications Medications (Trade) Dose Ordered Sig/Álvaro Start Time Stop Time Status Last Admin Dose Admin Ketorolac Tromethamine (Toradol 15mg Vial) 15 mg 1X ONCE 01/19/19 21:00 01/19/19 21:01 Metoclopramide HCl (Reglan Vial) 10 mg 1X ONCE 01/19/19 21:00 01/19/19 21:01 Sodium Chloride 1,000 ml @ 1,000 mls/hr 1X ONCE 01/19/19 20:45 01/19/19 21:44 Allergies Allergies Allergies Coded Allergies Type Severity Reaction Last Updated Verified Penicillins Allergy Intermediate 10/19/16 Yes Physical Exam Physical Exam Constitutional: Well developed, well nourished, mild acute distress, non-toxic appearance HENT: Normocephalic, atraumatic, oropharynx moist Eyes: PERRL, EOMI, conjunctiva normal, no discharge Neck: Normal range of motion, no tenderness, supple, no cervical or s upraclavicular LAD Cardiovascular: Heart regular rate and rhythm w/o gallops, rubs, or murmurs. UE radials pulses intact 2/4 b/l Lungs & Thorax: Bilateral breath sounds clear to auscultation, no wheezing Abdomen: Soft, non-distended, LUQ & LLQ tenderness Skin: Warm, dry, no erythema, no rash Back: No tenderness, left CVA tenderness Extremities: No tenderness, ROM intact, no edema Neurologic: Alert and oriented X 3, normal motor function, normal sensory function, no focal deficits noted Psychologic: Affect normal, judgement normal, mood normal Current Patient Data Vital Signs Vital Signs Date Time Temp Pulse Resp B/P (MAP) Pulse Ox O2 Delivery O2 Flow Rate FiO2 01/19/19 20:25 98.1 81 16 99 Room Air Lab Results Laboratory Tests Test 01/19/19 20:24 Urine Collection Type Unknown Urine Color Yellow Urine Clarity Clear Urine pH 5.5 Urine Specific Sarah Ann >=1.030 Urine Protein Neg (NEG-TRACE) Urine Glucose (UA) Neg mg/dL (NEG) Urine Ketones (Stick) Neg mg/dL (NEG) Urine Blood Trace (NEG) Urine Nitrite Neg (NEG) Urine Bilirubin Neg (NEG) Urine Urobilinogen Dipstick 0.2 mg/dL (0.2 mg/dL) Urine Leukocyte Esterase Neg (NEG) Urine RBC 3-5 /HPF (0-2) Urine WBC Occ /HPF (0-4) Urine Squamous Epithelial Cells Few /LPF Urine Bacteria 0 /HPF (0-FEW) Urine Mucus Slight /LPF EKG EKG [] Course & Med Decision Making Course & Med Decision Making Pertinent Labs and Imaging studies reviewed. (See chart for details) Patient presented with left-sided flank pain. Patient offered abdominal CT w/o contrast; patient declined. Ketorolac and Reglan administered. Labs obtained and posted to chart. UA without signs of infection and noted 3-5 RBC under microscopy. Patient advised would not be able to definitively diagnose her with a stone. Patient stable for discharge with outpatient follow-up with PCP/Urologist. Patient offered Rx for zofran ODT and flomax. Patient reports she has both at home and will take as needed. Discussed findings and plan with patient, who acknowledges understanding and agreement. Dragon Disclaimer Dragon Disclaimer This electronic medical record was generated, in whole or in part, using a voice recognition dictation system. Departure Departure: Impression: Primary Impression: Flank pain Disposition: 01 HOME, SELF-CARE Condition: STABLE Referrals: MO FORD MD (PCP) Patient Instructions: Flank Pain, [id number] Additional Instructions: You have decided to not have previously ordered CT scan. We cannot verify you have a kidney stone or how big it might be. Use previously prescribed flomax. Use previously prescribed zofran for nausea. You can also use over the counter tylenol and ibuprofen for pain or discomfort. JORJE GOETZ DO Jan 19, 2019 21:07
[2019-01-19 21:10] LABS: ALBUMIN 3.8 g/dL (3.4-5.0); CALCIUM 9.1 mg/dL (8.5-10.1); CREATININE 0.8 mg/dL (0.6-1.0); GFR 75.3; POTASSIUM 3.4 mmol/L (3.5-5.1); TOTAL BILIRUBIN 0.2 mg/dL (0.2-1.0); TOTAL PROTEIN 7.5 g/dL (6.4-8.2)
[2019-01-19 21:25] VITALS: BP 166/97
== END 2019-01-19 21:25 | disposition home or self-care (01) ==
LOC: ER 20:01
DX: R10.32 Left lower quadrant pain (principal); R10.12 Left upper quadrant pain; R30.0 Dysuria; Z87.442 Personal history of urinary calculi; G43.909 Migraine, unspecified, not intractable, without status migrainosus; Z87.440 Personal history of urinary (tract) infections; Z90.89 Acquired absence of other organs; Z90.49 Acquired absence of other specified parts of digestive tract; Z90.710 Acquired absence of both cervix and uterus; Z88.0 Allergy status to penicillin
CPT/HCPCS: 36415; 80053; 81001; 83690; 85025; 96374; 96375; 99284; J1885; J2765; J7030

== ENCOUNTER 2019-06-15 07:06 | Emergency (ER) | payer SELFPAY ==
[~2019-06-15] VITALS: Ht 167.6 cm; Wt 82.1 kg
[2019-06-15 07:10] VITALS: BP 140/87
--- NOTE | 2019-06-15 07:23 | PHYS DOC ---
Past History Past Medical History: Kidney Stones, Migraines, UTI, Other Past Surgical History: Appendectomy, Cholecystectomy, Hysterectomy Smoking: Non-smoker Alcohol Use: None Drug Use: None Adult General Chief Complaint Chief Complaint: OTHER COMPLAINTS HPI HPI Patient is a 53-year-old female presents with left low back pain that has been present for the past several days. Started when she was twisting and moving mora Lindo presents. 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 She is here for medical clearance. She is not in any significant pain. Meloxicam seems to work to help with the pain. No loss of bowel or bladder control. No fever. No history of injection drug use/abuse. No weakness, numbness, or tingling. Patient did not want to come for any ER visit today.[] Review of Systems Review of Systems Constitutional: Denies fever or chills [] Eyes: Denies change in visual acuity, redness, or eye pain [] HENT: Denies nasal congestion or sore throat [] Respiratory: Denies cough or shortness of breath [] Cardiovascular: No chest pain or palpitations[] GI: Denies abdominal pain, nausea, vomiting, bloody stools or diarrhea [] : Denies dysuria or hematuria [] Musculoskeletal: See history of present illness. Pain is mild. Improves with stretching in the morning. Improves with meloxicam.[] Integument: Denies rash or skin lesions [] Neurologic: Denies headache, focal weakness or sensory changes [] Endocrine: Denies polyuria or polydipsia [] All other systems were reviewed and found to be within normal limits, except as documented in this note. Allergies Allergies Allergies Coded Allergies Type Severity Reaction Last Updated Verified Penicillins Allergy Intermediate 10/19/16 Yes Physical Exam Physical Exam Constitutional: Well developed, well nourished, no acute distress, non-toxic appearance. [] HENT: Normocephalic, atraumatic, bilateral external ears normal, oropharynx moist, no oral exudates, nose normal. [] Eyes: PERRLA, EOMI, conjunctiva normal, no discharge. [] Neck: Normal range of motion, no tenderness, supple, no stridor. [] Cardiovascular:Heart rate regular rhythm, no murmur [] Lungs & Thorax: Bilateral breath sounds clear to auscultation [] Abdomen: Not examined[] Skin: Warm, dry, no erythema, no rash. [] Back: Tenderness to palpation over the left lumbar paraspinal muscular region, lower portion. No midline tenderness or step-off. Normal gait., no CVA tenderness. [] Extremities: No tenderness, no cyanosis, no clubbing, ROM intact, no edema. [] Neurologic: Alert and oriented X 3, normal motor function, normal sensory function, no focal deficits noted. [] Psychologic: Affect normal, judgement normal, mood normal. [] EKG EKG [] Radiology/Procedures Radiology/Procedures [] Course & Med Decision Making Course & Med Decision Making Pertinent Labs and Imaging studies reviewed. (See chart for details) Emergency department course: Patient arrived, was placed in bed, and tolerated exam well. Findings and plan were discussed with the patient who voiced understanding. All questions were answered. She was discharged in improved condition. Medical decision making: There is no evidence of a fracture, cauda equina syndrome, subluxation, neurologic or vascular issues. No evidence of spinal epidural abscess.[] Dragon Disclaimer Dragon Disclaimer This electronic medical record was generated, in whole or in part, using a voice recognition dictation system. Departure Departure: Impression: Primary Impression: Low back strain Disposition: 01 HOME, SELF-CARE Condition: IMPROVED Referrals: MO FORD MD (PCP) Follow-up in 2 days Patient Instructions: Low Back Strain with [facility]hab[facility] Additional Instructions: Follow-up with your regular doctor in 2 days. Follow the low back exercise plan. Return to the emergency department if worsening pain, fever of more than 101, loss of bowel or bladder control, or any other concerns. Problem Qualifiers Primary Impression: Low back strain Encounter type: initial encounter Qualified Codes: S39.012A - Strain of muscle, fascia and tendon of lower back, initial encounter JAMES LYN DO Jun 15, 2019 07:23
== END 2019-06-15 07:23 | disposition home or self-care (01) ==
LOC: ER 07:06
DX: S39.012A Strain of muscle, fascia and tendon of lower back, initial encounter (principal); Z87.442 Personal history of urinary calculi; G43.909 Migraine, unspecified, not intractable, without status migrainosus; Z87.440 Personal history of urinary (tract) infections; Z90.89 Acquired absence of other organs; Z90.49 Acquired absence of other specified parts of digestive tract; Z90.710 Acquired absence of both cervix and uterus; Z88.0 Allergy status to penicillin; X50.9XXA Other and unspecified overexertion or strenuous movements or postures, initial encounter; Y93.89 Activity, other specified; Y92.89 Other specified places as the place of occurrence of the external cause; Y99.8 Other external cause status
CPT/HCPCS: 99281

== ENCOUNTER 2019-06-27 16:02 | Emergency (ER) | payer SELFPAY ==
[~2019-06-27] VITALS: Ht 167.6 cm; Wt 76.2 kg
[2019-06-27 16:20] VITALS: BP 125/81
[2019-06-27] MEDS ORDERED: AZIT250T6 PO (16:38)
[2019-06-27] MEDS ORDERED: PRED20TA PO (16:39)
--- NOTE | 2019-06-27 16:39 | PHYS DOC ---
Past History Past Medical History: Kidney Stones, Migraines, UTI, Other Past Surgical History: Appendectomy, Cholecystectomy, Hysterectomy Smoking: Non-smoker Alcohol Use: None Drug Use: None Adult General Chief Complaint Chief Complaint: HEADACHE HPI HPI 53-year-old female presents with frontal headache and sinus pressure. Patient has had an intermittent headache and sinus congestion for about a month. The last few days the frontal sinus pressure has been worse. She has tried several wlyb-rxr-zhtpyst medications without relief. She has not had a fever or chills. She was unable to be seen by her primary care physician. She left work today due to the sinus pressure. She is concerned this is an infection. She has a history of sinus trouble and sinus infections. She has no other complaints at this time. Review of Systems Review of Systems Constitutional: Denies fever or chills [] Eyes: Denies change in visual acuity, redness, or eye pain [] HENT: Sinus congestion, frontal sinus pain[] Respiratory: Denies cough or shortness of breath [] Cardiovascular: No additional information not addressed in HPI [] GI: Denies abdominal pain, nausea, vomiting, bloody stools or diarrhea [] : Denies dysuria or hematuria [] Musculoskeletal: Denies back pain or joint pain [] Integument: Denies rash or skin lesions [] Neurologic: Denies focal weakness or sensory changes [] Endocrine: Denies polyuria or polydipsia [] All other systems were reviewed and found to be within normal limits, except as documented in this note. Allergies Allergies Allergies Coded Allergies Type Severity Reaction Last Updated Verified Penicillins Allergy Intermediate 10/19/16 Yes Physical Exam Physical Exam Constitutional: Well developed, well nourished, no acute distress, non-toxic appearance. [] HENT: Normocephalic, atraumatic, bilateral external ears normal, oropharynx moist, no oral exudates, nose congested. Pain with palpation over the bilateral frontal sinuses.[] Eyes: PERRLA, EOMI, conjunctiva normal, no discharge. [] Neck: Normal range of motion, no tenderness, supple, no stridor. [] Cardiovascular:Heart rate regular rhythm, no murmur [] Lungs & Thorax: Bilateral breath sounds clear to auscultation [] Abdomen: Bowel sounds normal, soft, no tenderness, no masses, no pulsatile masses. [] Skin: Warm, dry, no erythema, no rash. [] Back: No tenderness, no CVA tenderness. [] Extremities: No tenderness, no cyanosis, no clubbing, ROM intact, no edema. [] Neurologic: Alert and oriented X 3, normal motor function, normal sensory function, no focal deficits noted. [] Psychologic: Affect normal, judgement normal, mood normal. [] EKG EKG [] Radiology/Procedures Radiology/Procedures [] Course & Med Decision Making Course & Med Decision Making Pertinent Labs and Imaging studies reviewed. (See chart for details) The patient appears to have a sinus infection. She is allergic to penicillin so I'll treat her with azithromycin. I will also give her prednisone for 3 days. She is stable for discharge at this time. [] Dragon Disclaimer Dragon Disclaimer This electronic medical record was generated, in whole or in part, using a voice recognition dictation system. Departure Departure: Impression: Primary Impression: Sinus infection Disposition: HOME, SELF-CARE Condition: STABLE Referrals: MO FORD MD (PCP) Patient Instructions: Sinusitis, Yepr-ad-Irxu Scripts Prednisone (PREDNISONE) 20 Mg Tablet 2 TAB PO DAILY for sinusitis for 3 Days, #6 TAB Prov: ELIZA GUTHRIE DO 06/27/19 Azithromycin (AZITHROMYCIN TABLET) 250 Mg Tablet 1 PKG PO UD for sinusitis for 5 Days, #6 TAB 0 Refills 2 the first day followed by 1 for days 2-5 Prov: ELIZA GUTHRIE DO 06/27/19 Problem Qualifiers Primary Impression: Sinus infection Sinusitis location: frontal Chronicity: acute Recurrence: non-recurrent Qualified Codes: J01.10 - Acute frontal sinusitis, unspecified ELIZA GUTHRIE DO Jun 27, 2019 16:39
== END 2019-06-27 16:40 | disposition home or self-care (01) ==
LOC: ER 16:02
DX: J01.10 Acute frontal sinusitis, unspecified (principal); Z87.442 Personal history of urinary calculi; G43.909 Migraine, unspecified, not intractable, without status migrainosus; Z87.440 Personal history of urinary (tract) infections; Z88.0 Allergy status to penicillin
CPT/HCPCS: 99283

== ENCOUNTER 2019-10-01 17:52 | Emergency (ER) | payer SELFPAY ==
[~2019-10-01] VITALS: Ht 167.6 cm; Wt 83.5 kg
[~2019-10-01 17:52] MED LIST changes: +AZIT250T6 PO; +PRED20TA PO
--- NOTE | 2019-10-01 17:58 | PHYS DOC ---
Past History Past Medical History: Anxiety, Kidney Stones, Migraines, UTI, Other Past Surgical History: Appendectomy, Cholecystectomy, Hysterectomy Smoking: Non-smoker Alcohol Use: None Drug Use: None General Adult HPI: HPI: ".. I got to be in good shape.. 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 It has not gone away with my Fioricet... And now I have got this left flank abdomen pain.... It is kind like a kidney stone pain... I could not get into see Dr. Ford.... I just quit the [facility]... I feel like I may be have a flu thing...[place]'t [place]unless I am better health..." Patient is a 53 year old FEMALE who presents with above hx and complaints of migraine-like headache for the last 5 days and now left flank abdomen pain. Patient migraine did not resolve with Fioricet at home. Patient denies any intake of bad food. Has been exposed to sick patients at [facility]. No recent travel outside the [place] area. No history immunosuppression. Has long history of kidney stones with exacerbations approximately 5 times a year. Patient does states she has migraines approximately 5 times a month but usually resolve with Fioricet or [id number] meds. Patient is up-to-date with her flu vaccination. Patient denies any trauma. Patient states her prior CTs of the head have been normal. The pt.follows with Dr. Ford. Review of Systems: Review of Systems: Constitutional: Denies fever or chills Eyes: Denies change in visual acuity HENT: Denies nasal congestion or sore throat Respiratory: Denies cough or shortness of breath Cardiovascular: Denies chest pain or edema GI: Complaints abdominal pain, nausea,. Denies vomiting, bloody stools or diarrhea : Denies dysuria Musculoskeletal: Denies back pain or joint pain Integument: Denies rash Neurologic: Complaints migraine headache. Denies, focal weakness or sensory changes Endocrine: Denies polyuria or polydipsia Lymphatic: Denies swollen glands Psychiatric: Denies depression or anxiety Heart Score: Risk Factors: Risk Factors: DM, Current or recent (<one month) smoker, HTN, HLP, family history of CAD, obesity. Risk Scores: Score 0 - 3: 2.5% MACE over next 6 weeks - Discharge Home Score 4 - 6: 20.3% MACE over next 6 weeks - Admit for Clinical Observation Score 7 - 10: 72.7% MACE over next 6 weeks - Early Invasive Strategies Family History: Family History: Father had kidney stones Current Medications: Current Meds: See nursing for home meds Allergies: Allergies: Allergies Coded Allergies Type Severity Reaction Last Updated Verified Penicillins Allergy Intermediate 10/19/16 Yes Physical Exam: PE: Constitutional: Moderate acute distress, non-toxic appearance. [] HENT: Normocephalic, atraumatic, bilateral external ears normal, oropharynx moist, no oral exudates, nose normal. [] Eyes: PERRLA, EOMI, conjunctiva normal, no discharge. Fundus benign Neck: Normal range of motion, no tenderness, supple, no stridor. [] Cardiovascular:Heart rate regular rhythm, no murmur [] Lungs & Thorax: Bilateral breath sounds equal at the apex on auscultation [] Abdomen: Bowel sounds decreased, soft, , no masses, no pulsatile masses. Obese. Old surgery scars. Some rebound to the left upper quadrant and flank Skin: Warm, dry, no erythema, no rash. [] Back: No tenderness, left CVA tenderness. [] Extremities: No tenderness, no cyanosis, no clubbing, ROM intact, trace ankle edema. [] Neurologic: Alert and oriented X 3, normal motor function, normal sensory function, no focal deficits noted. [] DTRs are +2 patellar and brachial. Art Professor equal. Ambulatory without problems. No drift. Psychologic: Affect anxious, judgement normal, mood normal. [] EKG: EKG: My interpretation EKG shows a sinus rhythm at 80 bpm. Does have some nonspecific ST changes but no findings of acute STEMI or contralateral changes. [] Radiology/Procedures: Radiology/Procedures: [address] [address] IMAGING REPORT Signed PATIENT: GENET MCCANN ACCOUNT: [id number] : 1965 LOCATION: ER AGE: 53 SEX: F EXAM STATUS: DEP ER ORD. PHYSICIAN: AISLINN CONNOLLY MD REASON: Lt. chest flank pain PROCEDURE: ABDOMEN SUPINE & UPRIGHT Exam: Chest 2 views. Abdomen 2 views INDICATION: Left chest flank pain TECHNIQUE: Frontal and lateral views the chest. Upright and supine views of the abdomen Comparisons: None FINDINGS: The cardiomediastinal silhouette and pulmonary vessels are within normal limits. The lung and pleural spaces are clear. Air and stool are noted throughout the colon to level the rectum in a nonobstructive bowel gas pattern. No suspicious masses or calcifications. Visualized osseous structures are unremarkable. IMPRESSION: 1. No acute cardiopulmonary process. 2. Nonobstructive bowel gas pattern. Electronically signed by: Kenneth Santillan MD (10/01/2019 10:19 PM) [id number] DICTATED AND SIGNED BY: KENNETH SANTILLAN MD DATE: 10/01/192218 CC: AISLINN CONNOLLY MD; MO FORD MD ~ Course & Med Decision Making: Course & Med Decision Making Pertinent Labs and Imaging studies reviewed. (See chart for details) Patient push fluids. Patient refused ED work-up primary care. Patient return for any concerns. Patient encouraged to self isolate due to the Covid 19 Pandemic. Pt. return if any concerns. Patient take Zofran 8 mg with 4 times a day for active vomiting. Patient do a trial of Imitrex 100 mg at the beginning of the headache. - Take no more than 200 mg 24. Patient follow-up primary care. Impression; 1. Viral Syndrome 2. Abdomen Pain 3. Migraine [] Dragon Disclaimer: Dragon Disclaimer: This electronic medical record was generated, in whole or in part, using a voice recognition dictation system. Departure Departure: Disposition: 01 HOME/RESIDENCE PRIOR TO ADM Condition: STABLE Referrals: MO FORD MD (PCP) Scripts Ondansetron Hcl (ZOFRAN) 8 Mg Tablet 8 MG PO QIDPRN PRN for nausea, headache, #30 BOTTLE Prov: AISLINN CONNOLLY MD 10/01/19 Sumatriptan Succinate (IMITREX) 100 Mg Tablet 100 MG PO 1x prn at begining for Migraine, #10 TAB Prov: AISLINN CONNOLLY MD 10/01/19 Dragon Disclaimer This chart was dictated in whole or in part using Voice Recognition software in a busy, high-work load, and often noisy Emergency Department environment. It may contain unintended and wholly unrecognized errors or omissions. Dragon Disclaimer This chart was dictated in whole or in part using Voice Recognition software in a busy, high-work load, and often noisy Emergency Department environment. It may contain unintended and wholly unrecognized errors or omissions. AISLINN CONNOLLY MD Oct 01, 2019 17:58
[2019-10-01] MEDS ORDERED: IV RINGERS SOLUTION,LACTATED 1,000 ML IV SCH (18:55)
[2019-10-01] MEDS ORDERED: PROCHLORPERAZINE 10 MG/2 ML VIAL. IV ONE (19:00)
[2019-10-01] MEDS ORDERED: SUMAtriptan SUCC 6 MG/0.5 ML VIAL SQ ONE (19:00)
[2019-10-01] MEDS ORDERED: diphenhydrAMINE 50 MG/ML VIAL IV ONE (19:00)
[2019-10-01 19:13] LABS: BASO # 0.1 x10^3/uL (0.0-0.2); BASO % 1 % (0-3); EOS # 0.1 x10^3/uL (0.0-0.7); EOS % 2 % (0-3); HEMATOCRIT 41.7 % (36.0-47.0); HEMOGLOBIN 14.2 g/dL (12.0-15.5); LYMPH # 2.3 x10^3/uL (1.0-4.8); LYMPH % 30 % (24-48); MEAN CORPUSCULAR HEMOGLOBIN 30 pg (25-35); MEAN CORPUSCULAR HGB CONC 34 g/dL (31-37); MEAN CORPUSCULAR VOLUME 89 fL (79-100); MONO # 0.7 x10^3/uL (0.0-1.1); MONO % 9 % (0-9); NEUT # 4.4 x10^3uL (1.8-7.7); NEUT % 59 % (31-73); PLATELET COUNT 296 x10^3/uL (140-400); RED BLOOD COUNT 4.71 x10^6/uL (3.50-5.40); RED CELL DISTRIBUTION WIDTH 13.2 % (11.5-14.5); WHITE BLOOD COUNT 7.6 x10^3/uL (4.0-11.0)
[2019-10-01 19:17] LABS: CREATININE 0.7 mg/dL (0.6-1.0); GFR 87.9; POTASSIUM 3.5 mmol/L (3.5-5.1)
[2019-10-01 19:28] LABS: ALBUMIN 3.7 g/dL (3.4-5.0); DIRECT BILIRUBIN 0.1 mg/dL (0.0-0.2); MAGNESIUM 1.8 mg/dL (1.8-2.4); TOTAL BILIRUBIN 0.2 mg/dL (0.2-1.0); TOTAL PROTEIN 7.4 g/dL (6.4-8.2)
[2019-10-01 19:34] LABS: BILIRUBIN,URINE NEG (NEG); CLARITY,URINE CLEAR; COLOR,URINE YELLOW; GLUCOSE,URINE NEG (NEG); NITRITE,URINE NEG (NEG); UROBILINOGEN,URINE 0.2 mg/dL (0.2 mg/dL)
[2019-10-01 19:35] LABS: BACTERIA,URINE FEW /HPF (0-FEW); RBC,URINE 0 /HPF (0-2); SQUAMOUS EPITHELIAL CELL,UR MOD /LPF; WBC,URINE RARE /HPF (0-4)
[2019-10-01 20:14] LABS: INFLUENZA A PATIENT NEGATIVE (NEGATIVE); INFLUENZA B PATIENT NEGATIVE (NEGATIVE)
[2019-10-01 20:19] LABS: SEDIMENTATION RATE 10 (0-25)
[2019-10-01] MEDS ORDERED: SUMA100T3 PO (20:59)
[2019-10-01 21:00] VITALS: BP 135/77
[2019-10-01] MEDS ORDERED: ONDA8TAB9 PO (21:00)
--- NOTE | 2019-10-01 22:22 | RAD ---
Exam: Chest 2 views. Abdomen 2 views INDICATION: Left chest flank pain TECHNIQUE: Frontal and lateral views the chest. Upright and supine views of the abdomen Comparisons: None FINDINGS: The cardiomediastinal silhouette and pulmonary vessels are within normal limits. The lung and pleural spaces are clear. Air and stool are noted throughout the colon to level the rectum in a nonobstructive bowel gas pattern. No suspicious masses or calcifications. Visualized osseous structures are unremarkable. IMPRESSION: 1. No acute cardiopulmonary process. 2. Nonobstructive bowel gas pattern. Electronically signed by: Kenneth El MD (10/01/2019 10:19 PM) [id number]
--- NOTE | 2019-10-02 00:20 | EKG ---
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
== END 2019-10-01 21:40 | disposition home or self-care (01) ==
LOC: ER 17:52
DX: Z03.818 Encounter for observation for suspected exposure to other biological agents ruled out (principal); G43.909 Migraine, unspecified, not intractable, without status migrainosus; B34.9 Viral infection, unspecified; R10.12 Left upper quadrant pain; Z87.440 Personal history of urinary (tract) infections; Z87.442 Personal history of urinary calculi; Z90.49 Acquired absence of other specified parts of digestive tract; Z90.89 Acquired absence of other organs; Z90.710 Acquired absence of both cervix and uterus; Z88.0 Allergy status to penicillin
CPT/HCPCS: 36415; 71046; 74019; 80048; 80076; 81001; 82550; 83690; 83735; 83880; 84443; 84484; 85025; 85610; 85651; 85730; 86705; 86709; 86803; 87070; 87340; 87635; 87804; 87880; 93005; 99285; J7120

== ENCOUNTER 2019-11-16 01:25 | Emergency (ER) | payer SELFPAY ==
[~2019-11-16] VITALS: Ht 167.6 cm; Wt 83.5 kg
[~2019-11-16 01:25] MED LIST changes: +SUMA100T3 PO
[2019-11-16 01:30] VITALS: BP 175/75
[2019-11-16] MEDS ORDERED: diazePAM 5 MG TABLET ONE (01:59)
[2019-11-16] MEDS ORDERED: DIAZ5TAB4 PO (02:00)
--- NOTE | 2019-11-16 02:00 | PHYS DOC ---
Past History Past Medical History: Anxiety, Kidney Stones, Migraines, UTI, Other Additional Past Medical Histor: gastroperesis Past Surgical History: Appendectomy, Cholecystectomy, Hysterectomy Smoking: Non-smoker Alcohol Use: None Drug Use: None General Adult EDM: Chief Complaint: DIZZY/LIGHT HEADED HPI: HPI: Patient is a 54-year-old female who has had a lot of stress in her life recently she has had multiple illnesses which have put her out of work now she stressed because she is out of work. 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 She states she has been very dizzy she has had some migraines and been out of her medication. She denies any fever or upper respiratory symptoms. She has random aches and pains that seem to come and go for her. She is tried to see her primary care physician but the appointments are out 3 weeks. She is also worried that her blood pressure was elevated. She also states that she has not slept in several nights. [] Review of Systems: Review of Systems: Constitutional: Denies fever or chills Eyes: Denies change in visual acuity HENT: Denies nasal congestion or sore throat Respiratory: Denies cough or shortness of breath Cardiovascular: Denies chest pain or edema GI: Denies abdominal pain, nausea, vomiting, bloody stools or diarrhea : Denies dysuria Musculoskeletal: Denies back pain or joint pain Integument: Denies rash Neurologic: Denies headache, focal weakness or sensory changes Endocrine: Denies polyuria or polydipsia Lymphatic: Denies swollen glands Psychiatric: Reports depression and anxiety Heart Score: Risk Factors: Risk Factors: DM, Current or recent (<one month) smoker, HTN, HLP, family history of CAD, obesity. Risk Scores: Score 0 - 3: 2.5% MACE over next 6 weeks - Discharge Home Score 4 - 6: 20.3% MACE over next 6 weeks - Admit for Clinical Observation Score 7 - 10: 72.7% MACE over next 6 weeks - Early Invasive Strategies Allergies: Allergies: Allergies Coded Allergies Type Severity Reaction Last Updated Verified Penicillins Allergy Intermediate 10/19/16 Yes Physical Exam: PE: Constitutional: Well developed, well nourished, no acute distress, non-toxic appearance. [] HENT: Normocephalic, atraumatic, bilateral external ears normal, oropharynx moist, no oral exudates, nose normal. [] Eyes: PERRLA, EOMI, conjunctiva normal, no discharge. [] Neck: Normal range of motion, no tenderness, supple, no stridor. [] Cardiovascular:Heart rate regular rhythm, no murmur [] Lungs & Thorax: Bilateral breath sounds clear to auscultation [] Abdomen: Bowel sounds normal, soft, no tenderness, no masses, no pulsatile masses. [] Skin: Warm, dry, no erythema, no rash. [] Back: No tenderness, no CVA tenderness. [] Extremities: No tenderness, no cyanosis, no clubbing, ROM intact, no edema. [] Neurologic: Alert and oriented X 3, normal motor function, normal sensory function, no focal deficits noted. [] Psychologic: Extremely anxious. [] Current Patient Data: Vital Signs: Vital Signs Date Time Temp Pulse Resp B/P (MAP) Pulse Ox O2 Delivery O2 Flow Rate FiO2 11/16/19 01:30 98.3 89 16 175/75 (108) 98 Room Air EKG: EKG: [] Radiology/Procedures: Radiology/Procedures: [] Course & Med Decision Making: Course & Med Decision Making Pertinent Labs and Imaging studies reviewed. (See chart for details) ED course: Evaluation reveals a 54-year-old very anxious female. She has pressured speech and is very tangential in her thinking. I discussed this with the patient and feel that she would benefit with a short course of anxiolytics. We will give her a dose of Valium tonight.] Trupti Disclaimer: Trupti Disclaimer: This electronic medical record was generated, in whole or in part, using a voice recognition dictation system. Departure Departure: Impression: Primary Impression: Anxiety about health Disposition: 01 HOME/RESIDENCE PRIOR TO ADM Condition: STABLE Referrals: MO FORD MD (PCP) Patient Instructions: Anxiety and Panic Attacks Additional Instructions: I believe it is very important that you follow with your primary care physician. After my evaluation of you tonight I do believe that the majority of your symptoms are a direct result of anxiety. Scripts Diazepam (DIAZEPAM) 5 Mg Tablet 5 MG PO BID for anxiety, #10 TAB Prov: EDUARDA JARRELL DO 11/16/19 EDUARDA JARRELL DO November 16, 2019 02:00
[2019-11-16] MEDS ORDERED: diazePAM 5 MG TABLET PO ONE (02:15)
== END 2019-11-16 02:05 | disposition home or self-care (01) ==
LOC: ER 01:25
DX: F41.9 Anxiety disorder, unspecified (principal); G43.909 Migraine, unspecified, not intractable, without status migrainosus; Z87.442 Personal history of urinary calculi; Z87.440 Personal history of urinary (tract) infections; Z88.0 Allergy status to penicillin
CPT/HCPCS: 99283

== ENCOUNTER 2020-01-21 01:57 | Emergency (ER) | payer SELFPAY ==
[~2020-01-21] VITALS: Ht 167.6 cm; Wt 85.3 kg
[~2020-01-21 01:57] MED LIST changes: +DIAZ5TAB4 PO
[2020-01-21 02:07] VITALS: BP 161/112
[2020-01-21] MEDS ORDERED: ONDANSETRON PF 4 MG/2 ML VIAL. IM ONE (02:15)
[2020-01-21] MEDS ORDERED: ONDA4TAB12 PO (02:17)
--- NOTE | 2020-01-21 02:17 | PHYS DOC ---
Past History Past Medical History: Anxiety, Kidney Stones, Migraines, UTI, Other Additional Past Medical Histor: gastroperesis Past Surgical History: Appendectomy, Cholecystectomy, Hysterectomy Smoking: Non-smoker Alcohol Use: None Drug Use: None General Adult EDM: Chief Complaint: NAUSEA/VOMITING/DIARRHEA HPI: HPI: 54-year-old female presents with report of nausea and vomiting which started this evening. Reports associated diarrhea. Reports concerned that she might of "eaten some bad pizza ". Reports no body else had any of her pizza. Reports had a pizza from the same area but denies similar symptoms. Denies fever chills. Patient reports history of gastroparesis. Reports trialed taking oral Zofran which she immediately threw up. Patient requesting IM shot of antiemetic and requests to go home. Review of Systems: Review of Systems: Constitutional: Denies fever or chills Eyes: Denies redness or eye pain HENT: Denies nasal congestion or sore throat Respiratory: Denies cough or shortness of breath Cardiovascular: Denies chest pain or palpitations GI: Reports abdominal cramping and nausea and vomiting and diarrhea : Denies dysuria or hematuria Musculoskeletal: Denies back pain or joint pain Integument: Denies rash or skin lesions Neurologic: Denies headache, focal weakness or sensory changes Complete systems were reviewed and found to be within normal limits, except as documented in this note. Allergies: Allergies: Allergies Coded Allergies Type Severity Reaction Last Updated Verified Penicillins Allergy Intermediate 10/19/16 Yes Physical Exam: PE: Constitutional: Well developed, well nourished, no acute distress, non-toxic appearance HENT: Normocephalic, atraumatic Eyes: Conjunctiva normal, no discharge Neck: Normal range of motion, supple Lungs & Thorax: No respiratory distress, equal chest rise and fall Abdomen: Soft, no tenderness, no guarding/rebound tenderness/distention Skin: Warm, dry, no erythema, no rash Back: No tenderness, no CVA tenderness Extremities: No tenderness, ROM intact, no edema Neurologic: Alert and oriented X 3, no focal deficits noted Psychologic: Affect normal, judgment normal Current Patient Data: Vital Signs: Vital Signs Date Time Temp Pulse Resp B/P (MAP) Pulse Ox O2 Delivery O2 Flow Rate FiO2 01/21/20 02:07 97.8 100 18 161/112 (128) 98 Room Air EKG: EKG: [] Radiology/Procedures: Radiology/Procedures: [] Course & Med Decision Making: Course & Med Decision Making Patient presents with report of nausea and vomiting that started last night. Patient reports concerned she might have eaten some bad pizza. Reports trialed regular Zofran when she immediately threw up. Patient requesting IM shot of antiemetic and then request to go home without other evaluation. Abdomen non- peritoneal. Patient stable for discharge with outpatient follow-up with PCP/GI. GI referral provided. Discussed findings and plan with patient, who acknowledges understanding and agreement. Dragon Disclaimer: Dragon Disclaimer: This electronic medical record was generated, in whole or in part, using a voice recognition dictation system. Departure Departure: Impression: Primary Impression: Nausea & vomiting Qualified Codes: R11.2 - Nausea with vomiting, unspecified Disposition: 01 HOME/RESIDENCE PRIOR TO ADM Condition: STABLE Referrals: MO FORD MD (PCP) Patient Instructions: Nausea and Vomiting, [id number] Scripts Ondansetron (ONDANSETRON ODT) 4 Mg Tab.rapdis 1 TAB PO PRN Q6-8HRS PRN for NAUSEA, #16 TAB Prov: JORJE GOETZ DO 01/21/20 Justification of Admission: Justification of Admission: Justification of Admission Dx: N/A JORJE GOETZ DO Jan 21, 2020 02:17
== END 2020-01-21 02:20 | disposition home or self-care (01) ==
LOC: ER 01:57
DX: R11.2 Nausea with vomiting, unspecified (principal); R19.7 Diarrhea, unspecified; R10.9 Unspecified abdominal pain; F41.9 Anxiety disorder, unspecified; G43.909 Migraine, unspecified, not intractable, without status migrainosus; Z87.442 Personal history of urinary calculi; Z87.440 Personal history of urinary (tract) infections; Z90.49 Acquired absence of other specified parts of digestive tract; Z90.710 Acquired absence of both cervix and uterus; Z88.0 Allergy status to penicillin
CPT/HCPCS: 96372; 99283; J2405